=== PATIENT | male | born 1965 | race Caucasian/White ===

== ENCOUNTER 2018-11-12 14:27 | Emergency (ER) | payer MEDICAID ==
[2018-11-12] MEDS: LIDOCAINE/MYLANTA 40 ML BTL PO (16:31)
[2018-11-12] MEDS: KETOROLAC 30 MG INJ IM (16:31)
[2018-11-12] MEDS: DEXAMETHASONE 10 MG/ML 1 ML INJ IM (16:32)
== END 2018-11-12 16:44 | disposition home or self-care (01) ==
LOC: FTE 14:27
DX: M54.6 Pain in thoracic spine (principal); K21.9 Gastro-esophageal reflux disease without esophagitis; I10 Essential (primary) hypertension
CPT/HCPCS: 96372; 99284-25